=== PATIENT | male | born 1980 | race Caucasian/White ===

== ENCOUNTER 2019-10-19 14:49 | Outpatient (CLI) | payer OTHER, SELFPAY ==
--- NOTE | ~2019-10-19 | XR_ITS ---
XR foot LT min 3V DATE: 10/19/2019 15:19 INDICATION: Left foot pain, particularly at fifth metatarsal. No known injury. TECHNIQUE: 4 views COMPARISON: None FINDINGS: There is mild posterior calcaneal enthesopathy. No fracture or dislocation, periosteal reac tion or bone destruction. No erosive change.. IMPRESSION: Mild posterior calcaneal enthesopathy Reviewed, dictated and finalized at location B.
== END 2019-10-19 14:50 | disposition home or self-care (01) ==
LOC: ANHIMG 14:59
PROVIDERS: PCP Family Medicine; Visit Provider Family Medicine
DX: M77.32 Calcaneal spur, left foot (principal)
CPT/HCPCS: 73630

== ENCOUNTER 2021-08-25 01:21 | Day surgery (SDC) | payer OTHER, SELFPAY ==
[2021-08-09 10:26] VITALS: BMI 24.1
--- NOTE | 2021-08-24 14:29 | PM.HPGS ---
History of Present Illness History of Present Illness Consent: Risks, benefits, and alternatives have been discussed and questions answered. Patient agrees to proceed with procedure. Chief complaint: Dysphagia Narrative: Senthil Sousa is a 41 year old male Who has recently developed dysphagia for solid food. He was started on omeprazole 40 mg daily. This has not relieved him of his symptoms. Review of Systems Review of Systems: All systems reviewed & are unremarkable except as noted in HPI and below PMFSH Past Medical History Medical History Hyperlipidemia Surgical History Surgical History History of vasectomy Family History Family History Father Heart disease Social History Social History Smoking status: Never smoker Second hand tobacco smoke exposure: No Alcohol intake: current Drinks per week: 6 Alcohol use details: BEER Substance use: never Substance use type: does not use Living arrangements: with family Gender identity (if verbalized by the patient): Male Sexual Orientation (if Verbalized by the Patient): Straight or Heterosexual Spiritual care concerns: No Meds Home Medications and Allergies Home Medications Medication Instructions Recorded Confirmed Type omeprazole 40 mg capsule,delayed 40 mg PO DAILY #30 cap 05/29/21 08/09/21 Rx release Allergies Allergy/AdvReac Type Severity Reaction Status Date / Time Sulfa (Sulfonamide Allergy Severe Swelling Verified 08/09/21 10:27 Antibiotics) of Lip/Tongue/Throat bee venom protein (honey bee) Allergy Intermediate Swelling Verified 07/19/21 15:58 poison kee extract Allergy Mild Rash Verified 07/19/21 15:58 Exam Const: General: alert Orientation/consciousness: patient oriented x3 Resp: Auscultation: clear to auscultation bilaterally Cardio: Rhythm: regular rhythm GI: GI Palp: Yes Soft to palpation and No Tenderness to palpation present (GI) Neuro: General: patient oriented x3 Assessment and Plan Assessment and plan (1) Dysphagia: Code(s): R13.10 - Dysphagia, unspecified Status: Acute Assessment and Plan: EGD with possible biopsy or dilatation or cautery.
[2021-08-25 09:25] VITALS: BP 117/71; PULSE 61; RESP 16; TEMP 36.2; O2SAT 100; BMI 23.7
[2021-08-25] MEDS: LACTATED RINGERS 1,000 ML 150 ML IV CONT (09:34)
--- NOTE | 2021-08-25 09:38 | WPDANESEPPF ---
Anes - Initial Pre Proc Eval Procedure: Operation Date: 08/25/21 10:30 Proposed Procedures p Esophagogastroduodenoscopy - Eleazar Cordero MD Date/Time: 08/25/21 09:38 Surgeon: Eleazar Cordero MD Pre Op Diagnosis: Dysphagia Patient Data Age: 41 Gender: M Height: 1.73 m Weight: 70.8 kg Last Vital Signs Temp 36.2 C L 08/25/21 09:25 Pulse 61 08/25/21 09:25 Resp 16 08/25/21 09:25 BP 117/71 08/25/21 09:25 Pulse Ox 100 08/25/21 09:25 Allergies Allergy/AdvReac Type Severity Reaction Status Date / Time Sulfa (Sulfonamide Allergy Severe Swelling Verified 08/25/21 09:24 Antibiotics) of Lip/Tongue/Throat bee venom protein (honey bee) Allergy Intermediate Swelling Verified 08/25/21 09:24 poison kee extract Allergy Mild Rash Verified 08/25/21 09:24 Home Medications Medication Instructions Recorded Confirmed Type omeprazole 40 mg capsule,delayed 40 mg PO DAILY #30 cap 05/29/21 08/09/21 Rx release Patient hx anesthesia problems: none Family hx anesthesia problems: none Results Review: All pre-operative results and documents have been reviewed as part of the pre-operative evaluation. ON LICENSE OF [facility] Past Medical History Medical History Hyperlipidemia Surgical History Surgical History History of vasectomy Family History Family History Father Heart disease Social History Social History Smoking status: Never smoker Second hand tobacco smoke exposure: No Alcohol intake: current Drinks per week: 6 Alcohol use details: BEER Substance use: never Substance use type: does not use Living arrangements: with family Gender identity (if verbalized by the patient): Male Sexual Orientation (if Verbalized by the Patient): Straight or Heterosexual Spiritual care concerns: No Anes - Eval Final PreProcedure Day of Procedure 08/25/21 09:38 Patient weight: normal Heart: regular rate and rhythm Lungs: clear to auscultation Airway: Mallampati scale class II and special considerations poor opening Neurological: alert and oriented Last oral intake: >/= 8 hours ASA classification: I Emergent: no Anesthetic plan: proceed Anesthesia type and monitoring: general GIVS and standard monitoring Results Review: All pre-operative results and documents have been reviewed as part of the pre-operative evaluation. Informed Consent: The patient's anesthetic plan and its attendant risks and benefits were discussed with the patient/family/POA. Questions were solicited and answers provided to the satisfaction of the patient/family/POA.
[2021-08-25 10:36] VITALS: BP 117/74; PULSE 62; RESP 23; O2SAT 100
[2021-08-25 10:46] VITALS: BP 128/88; PULSE 56; RESP 16; O2SAT 100
[2021-08-25 10:56] VITALS: BP 138/96; PULSE 61; RESP 15; O2SAT 100
== END 2021-08-25 11:04 | disposition home or self-care (01) ==
PROVIDERS: PCP Family Medicine; Visit Provider Internal Medicine Gastroenterology
PROC: 0DJ08ZZ Inspection of Upper Intestinal Tract, Via Natural or Artificial Opening Endoscopic (ICD-10-PCS; CPT 43235; principal; 2021-08-25 10:30)
DX: R13.10 Dysphagia, unspecified (principal); K21.9 Gastro-esophageal reflux disease without esophagitis; E78.5 Hyperlipidemia, unspecified
CPT/HCPCS: 43239; 88305; J2704; J7120

== ENCOUNTER 2024-02-27 09:57 | Day surgery (SDC) | payer OTHER, SELFPAY ==
[2024-01-22 09:29] VITALS: BMI 25.3
[2024-02-27 11:08] VITALS: BP 133/90; PULSE 66; RESP 18; TEMP 36.4; O2SAT 99; BMI 25.5
[2024-02-27] MEDS: LACTATED RINGERS 1,000 ML 150 ML IV CONT (11:18)
--- NOTE | 2024-02-27 11:41 | WPDANESEPPF ---
Anes - Initial Pre Proc Eval Procedure: Operation Date: 02/27/24 12:30 Proposed Procedures p Diagnostic Colonoscopy - Yoni Michelle MD Date/Time: 02/27/24 11:41 Surgeon: Yoni Michelle MD Pre Op Diagnosis: Neoplasm Screening Patient Data Age: 43 Gender: M Height: 1.68 m Weight: 71.9 kg Last Vital Signs Temp 36.4 C L 02/27/24 11:08 Pulse 66 02/27/24 11:08 Resp 18 02/27/24 11:08 BP 133/90 02/27/24 11:08 Pulse Ox 99 02/27/24 11:08 O2 Del Method Room Air 02/27/24 11:08 Allergies Allergy/AdvReac Type Severity Reaction Status Date / Time Sulfa (Sulfonamide Allergy Severe Swelling Verified 02/27/24 11:04 Antibiotics) of Lip/Tongue/Throat bee venom protein (honey bee) Allergy Intermediate Swelling Verified 02/27/24 11:04 poison kee extract Allergy Mild Rash Verified 02/27/24 11:04 Home Medications Medication Instructions Recorded Confirmed Type omeprazole 40 mg capsule,delayed 40 mg PO DAILY #90 caps 10/12/23 02/27/24 Rx release lisinopril 10 mg tablet 10 mg PO DAILY #90 tabs 12/25/23 02/27/24 Rx rosuvastatin 10 mg tablet 10 mg PO DAILY #90 tabs 12/25/23 02/27/24 Rx carnosine 500 mg capsule 500 mg PO DIRECTED 02/10/24 02/27/24 History (L-Carnosine) Patient hx anesthesia problems: none Family hx anesthesia problems: none Results Review: All pre-operative results and documents have been reviewed as part of the pre-operative evaluation. [facility] Past Medical History Medical History Cataract, bilateral HTN (hypertension) Hyperlipidemia Retinoschisis and retinal cysts right eye Surgical History Surgical History History of vasectomy Family History Family History Father Heart disease Social History Social History Smoking status: Never smoker Second hand tobacco smoke exposure: No Alcohol intake: current Drinks per week: 4 Alcohol use details: BEER Substance use: never Substance use type: does not use Living arrangements: with family Occupation/Education: occupation Gender identity (if verbalized by the patient): Male Sexual Orientation (if Verbalized by the Patient): Straight or Heterosexual Spiritual care concerns: No Anes - Eval Final PreProcedure Day of Procedure 02/27/24 11:41 Patient weight: overweight Heart: regular rate and rhythm Lungs: clear to auscultation Airway: Mallampati scale class II Neurological: alert and oriented Last oral intake: >/= 8 hours ASA classification: II Emergent: no Anesthetic plan: proceed Anesthesia type and monitoring: general GIVS and standard monitoring Results Review: All pre-operative results and documents have been reviewed as part of the pre-operative evaluation. Informed Consent: The patient's anesthetic plan and its attendant risks and benefits were discussed with the patient/family/POA. Questions were solicited and answers provided to the satisfaction of the patient/family/POA.
--- NOTE | 2024-02-27 11:44 | PM.HPGS ---
History of Present Illness History of Present Illness Consent: Risks, benefits, and alternatives have been discussed and questions answered. Patient agrees to proceed with procedure. Chief complaint: Neoplasm Screening Narrative: Senthil Sousa is a 43 year old male presents for screening colonoscopy. Patient's current weight appetite and bowel patient denies abdominal has had no bleeding. Family history is noncontributory. Review of Systems Review of Systems: All systems reviewed & are unremarkable except as noted in HPI and below PMFSH Past Medical History Medical History Cataract, bilateral HTN (hypertension) Hyperlipidemia Retinoschisis and retinal cysts right eye Surgical History Surgical History History of vasectomy Family History Family History Father Heart disease Social History Social History Smoking status: Never smoker Second hand tobacco smoke exposure: No Alcohol intake: current Drinks per week: 4 Alcohol use details: BEER Substance use: never Substance use type: does not use Living arrangements: with family Occupation/Education: occupation Gender identity (if verbalized by the patient): Male Sexual Orientation (if Verbalized by the Patient): Straight or Heterosexual Spiritual care concerns: No Meds Home Medications and Allergies Home Medications Medication Instructions Recorded Confirmed Type omeprazole 40 mg capsule,delayed 40 mg PO DAILY #90 caps 10/12/23 02/27/24 Rx release lisinopril 10 mg tablet 10 mg PO DAILY #90 tabs 12/25/23 02/27/24 Rx rosuvastatin 10 mg tablet 10 mg PO DAILY #90 tabs 12/25/23 02/27/24 Rx carnosine 500 mg capsule 500 mg PO DIRECTED 02/10/24 02/27/24 History (L-Carnosine) Allergies Allergy/AdvReac Type Severity Reaction Status Date / Time Sulfa (Sulfonamide Allergy Severe Swelling Verified 02/27/24 11:04 Antibiotics) of Lip/Tongue/Throat bee venom protein (honey bee) Allergy Intermediate Swelling Verified 02/27/24 11:04 poison kee extract Allergy Mild Rash Verified 02/27/24 11:04 Vital Signs Vital Signs - 24 hr 02/27/24 11:08 Temperature 97.5 F L Pulse Rate 66 Respiratory Rate 18 Blood Pressure 133/90 Pulse Oximetry 99 Oxygen Delivery Room Air Exam Narrative: Physical exam reveals patient signs stable. HEENT is unremarkable. Patient is anicteric. Is are clear to auscultation question. Heart is without murmur or extra sounds. Abdomen bowel sounds are present soft nontender with no organomegaly. Digital external rectal exam normal. Assessment and Plan Assessment and plan (1) Screen for colon cancer: Code(s): Z12.11 - Encounter for screening for malignant neoplasm of colon Status: Acute Assessment and Plan: Presents today for screening colonoscopy. Further recommendations may be given after endoscopy.
[2024-02-27] MEDS: SIMETHICONE ORAL SUSPENSION 20 MG/0.3 ML 30 ML BOTTLE 0.6 ML IRRIGATION (12:14)
[2024-02-27 12:24] VITALS: BP 114/70; PULSE 59; RESP 18; O2SAT 97
[2024-02-27 12:34] VITALS: BP 118/73; PULSE 54; RESP 18; O2SAT 99
[2024-02-27 12:44] VITALS: BP 117/75; PULSE 53; RESP 16; O2SAT 99
--- NOTE | 2024-02-27 12:58 | WPDANESPN ---
Anes - Prog Note Post-Op Date/Time: 02/27/24 12:58 Cardiovascular status: normal Respiratory status: normal Airway patency: baseline Mental status: baseline Post-Op hydration status: normal Vital Signs: Last Vital Signs Temp 36.4 C L 02/27/24 11:08 Pulse 53 L 02/27/24 12:44 Resp 16 02/27/24 12:44 BP 117/75 02/27/24 12:44 Pulse Ox 99 02/27/24 12:44 O2 Del Method Room Air 02/27/24 12:44 Pain Score (VAS): 0 I/O: Intake & Output 02/26/24 02/27/24 02/27/24 23:59 07:59 15:59 Intake Total 0 Balance 0 Post-procedural complaints: none Patient Feedback: Patient satisfied with anesthetic care. Other Findings: Patient vital signs back to baseline. Patient denies nausea and vomiting. Patient's pain under control. Patient OK for discharge.
== END 2024-02-27 12:59 | disposition home or self-care (01) ==
PROVIDERS: PCP Family Medicine; Visit Provider Internal Medicine Gastroenterology
PROC: 0DJD8ZZ Inspection of Lower Intestinal Tract, Via Natural or Artificial Opening Endoscopic (ICD-10-PCS; CPT 45378; principal; 2024-02-27 12:30)
DX: Z12.11 Encounter for screening for malignant neoplasm of colon (principal); K64.8 Other hemorrhoids
CPT/HCPCS: 45378

== ENCOUNTER 2024-03-13 15:38 | Emergency (ER) | payer OTHER, SELFPAY ==
[2024-03-13 15:42] VITALS: BP 153/92; PULSE 72; RESP 20; TEMP 36; O2SAT 100
--- NOTE | 2024-03-13 16:46 | ED.DENTAL ---
HPI - Dental/Oral General Chief complaint: Dental/Oral Stated complaint: Chapped lip thats bleeding Time Seen by Provider: 03/13/24 16:35 Source: patient Mode of arrival: ambulatory Limitations: no limitations History of Present Illness HPI Narrative: This is a 43 year old male that presents to the ER for a lesion on his lip. Present for over 5 years. Reports in the winter it gets irritated and bleeds. It has been bleeding a lot the last couple of days. He sees a cabinet professional at [place] for this issues. He is not sure of the diagnosis of his lip lesion Related Data Home Medications Medication Instructions Recorded Confirmed carnosine 500 mg capsule 500 mg PO DIRECTED 02/10/24 02/27/24 (L-Carnosine) Allergies Allergy/AdvReac Type Severity Reaction Status Date / Time Sulfa (Sulfonamide Allergy Severe Swelling Verified 03/13/24 15:38 Antibiotics) of Lip/Tongue/Throat bee venom protein (honey bee) Allergy Intermediate Swelling Verified 03/13/24 15:38 poison kee extract Allergy Mild Rash Verified 03/13/24 15:38 Review of Systems Review of Systems: CONSTITUTIONAL: Denies fever ENT: Reports lip lesion All systems reviewed & are unremarkable except as noted in HPI and below PMFSH Past Medical History Medical History Cataract, bilateral HTN (hypertension) Hyperlipidemia Retinoschisis and retinal cysts right eye Surgical History Surgical History History of vasectomy Family History Family History Father Heart disease Social History Social History Smoking status: Never smoker Second hand tobacco smoke exposure: No Alcohol intake: current Drinks per week: 4 Alcohol use details: BEER Substance use: never Substance use type: does not use Living arrangements: with family Occupation/Education: occupation Gender identity (if verbalized by the patient): Male Sexual Orientation (if Verbalized by the Patient): Straight or Heterosexual Spiritual care concerns: No Exam Narrative: GENERAL: Well-appearing, well-nourished, and in no acute distress. HEAD: Normocephalic, atraumatic. EYES: EOMI. ENT: Ulcerating lesion to the right lower lip without active bleeding Course Course Emergency Course: patient and family updated on workup and agree with plan of care Vital Signs Vital signs: Vital Signs Temperature 96.8 F L 03/13/24 15:42 Pulse Rate 72 03/13/24 15:42 Respiratory Rate 20 03/13/24 15:42 Blood Pressure 153/92 H 03/13/24 15:42 Pulse Oximetry 100 03/13/24 15:42 Oxygen Delivery Room Air 03/13/24 15:42 Temperature 96.8 F L 03/13/24 15:42 Pulse Rate 72 03/13/24 15:42 Respiratory Rate 20 03/13/24 15:42 Blood Pressure 153/92 H 03/13/24 15:42 Pulse Oximetry 100 03/13/24 15:42 Oxygen Delivery Room Air 03/13/24 15:42 MDM - Dental/Oral MDM Narrative Medical decision making narrative: Patient presents to the emergency department for a lesion that is been on his lip for several years. He has been following with a cabinet professional for this. He has been experiencing some bleeding the last several days. He has no active bleeding currently. His hemoglobin is normal. He was instructed to follow-up with his cabinet professional for further care. He was given warnings to return to the ER Lab Data Attestation: I reviewed the patient's lab results. 03/13/24 16:57 Labs: Lab Results 03/13/24 Range/Units 16:57 WBC 8.6 (4.5-10.0) K/mm3 RBC 4.84 (4.6-6.20) M/mm3 Hgb 15.1 (14.0-18.0) g/dL Hct 42.4 (42.0-52.0) % MCV 87.6 (80-100) fl MCH 31.2 (26-34) pg MCHC 35.6 (32-36) g/dl RDW 11.5 (11.5-14.5) % Plt Count 274 (150-375) k/mm3 MPV 9.7 (7.4-10.4) fl Immature Gran % (Auto) 0.4 (0-0.5) % Neut % (Auto) 59.1 (45.5-73.1) % Lymph % (Auto) 30.6 (18.3-44.2) % Morrison % (Auto) 7.5 (2.6-8.5) % Eos % (Auto) 1.5 (0-4.4) % Baso % (Auto) 0.9 (0.2-1.2) % Lymph # (Auto) 2.62 (0.9-3.2) K/mm3 Morrison # (Auto) 0.6 (0.1-0.6) K/mm3 Eos # (Auto) 0.1 (0-0.3) K/mm3 Baso # (Auto) 0.1 (0.0-0.1) K/mm3 Abs Immat Gran (auto) 0.03 (0.00-0.031) K/mm3 Absolute Neuts (auto) 5.1 (1.3-6.7) K/mm3 Absolute Nucleated RBC 0.000 (0.0-0.012) K/mm3 Nucleated RBC % 0.0 (0.0-0.2) % PT 12.7 (11.1-14.7) Seconds INR 0.9 APTT 26.4 (22.3-36.8) Seconds Critical Care Time Critical Care Time Critical Care Time: No Discharge Plan Discharge Clinical Impression: Lesion of lip Patient Disposition: Home, Self-Care Condition: Stable Additional Instructions: Return to the emergency department if you experience fever, redness and swelling of your lip, bleeding you are unable to control, or any other symptoms that are concerning to you. Keep your lips moist with plain vaseline Follow up with your cabinet professional Prescriptions: No Action omeprazole 40 mg capsule,delayed release(DR/EC) 40 mg PO DAILY Qty: 90 1RF rosuvastatin 10 mg tablet 10 mg PO DAILY Qty: 90 2RF lisinopril 10 mg tablet 10 mg PO DAILY Qty: 90 2RF L-Carnosine 500 mg Capsule 500 mg PO DIRECTED Follow-up/Referrals: Mark Anthony Wood MD [Primary Care Provider] -
[2024-03-13 17:06] LABS: Basophils Absolute Auto 0.1 K/mm3 (0.0-0.1); Basophils Percent Auto 0.9 % (0.2-1.2); Eosinophils Absolute Auto 0.1 K/mm3 (0-0.3); Eosinophils Percent Auto 1.5 % (0-4.4); Hematocrit 42.4 % (42.0-52.0); Hemoglobin 15.1 g/dL (14.0-18.0); Immature Granulocyte Absolute 0.03 K/mm3 (0.00-0.031); Immature Granulocyte Percent A 0.4 % (0-0.5); Lymphocytes Absolute Auto 2.62 K/mm3 (0.9-3.2); Lymphocytes Percent Auto 30.6 % (18.3-44.2); Mean Corpuscular HGB Conc 35.6 g/dl (32-36); Mean Corpuscular Hemoglobin 31.2 pg (26-34); Mean Corpuscular Volume 87.6 fl (80-100); Mean Platelet Volume 9.7 fl (7.4-10.4); Monocytes Absolute Auto 0.6 K/mm3 (0.1-0.6); Monocytes Percent Auto 7.5 % (2.6-8.5); Neutrophils Absolute Auto 5.1 K/mm3 (1.3-6.7); Neutrophils Percent Auto 59.1 % (45.5-73.1); Platelet Count Result 274 k/mm3 (150-375); Red Blood Count 4.84 M/mm3 (4.6-6.20); Red Cell Distribution Width 11.5 % (11.5-14.5); White Blood Count 8.6 K/mm3 (4.5-10.0)
[2024-03-13 17:19] LABS: INR 0.9; Prothrombin Time 12.7 Seconds (11.1-14.7)
[2024-03-13 17:20] LABS: Partial Thromboplastin Time 26.4 Seconds (22.3-36.8)
== END 2024-03-13 17:29 | disposition home or self-care (01) ==
PROVIDERS: Emergency Provider Physician Assistant; PCP Family Medicine
DX: K13.0 Diseases of lips (principal); I10 Essential (primary) hypertension; E78.5 Hyperlipidemia, unspecified; Z79.899 Other long term (current) drug therapy
CPT/HCPCS: 36415; 85025; 85610; 85730; 99283